=== PATIENT | male | born 1990 | race Caucasian/White ===

== ENCOUNTER 2018-05-03 05:34 | Outpatient (CLI) | payer BC ==
[~2018-05-03] VITALS: Ht 175.3 cm; Wt 78.5 kg
== END 2018-05-03 13:22 | disposition home or self-care (01) ==
LOC: PREOP 05:34
PROVIDERS: ATTEND Surgery
DX: Z01.818 Encounter for other preprocedural examination (principal)

== ENCOUNTER 2018-05-06 07:01 | Day surgery (SDC) | payer BC ==
[~2018-05-06] VITALS: Ht 175.3 cm; Wt 78.5 kg
--- OUTSIDE RECORDS SUMMARY | 2018-05-06 07:04 | XMS REPORT | Continuity of Care Document ---
Author Author [facility] Address Unknown Phone Unavailable Allergies Active Description Code Type Severity Reaction Onset Reported/Identified Relationship to Patient Clinical Status Yes Penicillins Drug Allergy 05/24/2012 Yes Penicillins Drug Allergy N/A N/A 05/24/2012 Yes Penicillins [id number] Drug Allergy Unknown HIVES 05/03/2018 Medications There is no data. Problems Date Dx Coded Attending Type Code Diagnosis Diagnosed By 05/24/2012 682.9 CELLULITIS AND ABSCESS OF UNSPECIFIED SITES 05/24/2012 682.9 CELLULITIS AND ABSCESS OF UNSPECIFIED SITES 05/24/2012 682.9 CELLULITIS AND ABSCESS OF UNSPECIFIED SITES 05/24/2012 MISTY HA APRN N 682.9 CELLULITIS AND ABSCESS OF UNSPECIFIED SITES 05/24/2012 MISTY HA APRN N 682.9 CELLULITIS AND ABSCESS OF UNSPECIFIED SITES 05/24/2012 LUIS MIGUEL ZARAGOZA APRN R 682.9 CELLULITIS AND ABSCESS OF UNSPECIFIED SITES 08/26/2012 487.1 INFLUENZA WITH OTHER RESPIRATORY MANIFESTATIONS 08/26/2012 487.1 INFLUENZA WITH OTHER RESPIRATORY MANIFESTATIONS 08/26/2012 487.1 INFLUENZA WITH OTHER RESPIRATORY MANIFESTATIONS 08/26/2012 MISTY HA APRN N 487.1 INFLUENZA WITH OTHER RESPIRATORY MANIFESTATIONS 08/26/2012 MISTY HA APRN N 487.1 INFLUENZA WITH OTHER RESPIRATORY MANIFESTATIONS 08/26/2012 LUIS MIGUEL ZARAGOZA APRN R 487.1 INFLUENZA WITH OTHER RESPIRATORY MANIFESTATIONS 04/25/2013 346.90 HEADACHE, MIGRAINE 04/25/2013 346.90 HEADACHE, MIGRAINE 04/25/2013 MISTY HA APRN N 346.90 HEADACHE, MIGRAINE 04/25/2013 MISTY HA APRN N 346.90 HEADACHE, MIGRAINE 04/25/2013 LUIS MIGUEL ZARAGOZA APRN R 346.90 HEADACHE, MIGRAINE 05/04/2013 461.9 SINUSITIS ACUTE 05/04/2013 MISTY HA APRN N 461.9 SINUSITIS ACUTE 05/04/2013 LARUA HA APRNCY N 461.9 SINUSITIS ACUTE 05/04/2013 NIK JENSENDanielito LUIS MIGUEL R 461.9 SINUSITIS ACUTE 10/04/2013 LAURA HA APRNCY N 478.19 OTHER DISEASES OF NASAL CAVITY AND SINUSES 10/04/2013 LAURA HA APRNCY N 787.01 NAUSEA WITH VOMITING 10/04/2013 AL GUZMAN APRN MISTY N 787.91 DIARRHEA 10/04/2013 LAURA HA APRNCY N 478.19 OTHER DISEASES OF NASAL CAVITY AND SINUSES 10/04/2013 LAURA HA APRNCY N 787.01 NAUSEA WITH VOMITING 10/04/2013 LAURA HA APRNCY N 787.91 DIARRHEA 10/04/2013 LUIS MIGUEL ZARAGOZA APRN R 478.19 OTHER DISEASES OF NASAL CAVITY AND SINUSES 10/04/2013 CATHY ZARAGOZA APRNIA R 787.01 NAUSEA WITH VOMITING 10/04/2013 CATHY ZARAGOZA APRNIA R 787.91 DIARRHEA 07/04/2014 LAURA HA APRNCY N 461.8 OTHER ACUTE SINUSITIS 07/04/2014 AL GUZMAN APRN MISTY N 784.1 THROAT PAIN 07/04/2014 CATHY ZARAGOZA APRNIA R 461.8 OTHER ACUTE SINUSITIS 07/04/2014 LUIS MIGUEL ZARAGOZA APRN R 784.1 THROAT PAIN 11/29/2014 LUIS MIGUEL ZARAGOZA APRN R 692.6 CONTACT DERMATITIS AND OTHER ECZEMA DUE TO PLANTS (EXCEPT FOOD) 04/23/2018 NELSON CONDON SAW FEEDER Ot R10.11 RIGHT UPPER QUADRANT PAIN Procedures Code [place] [address] THERAPUTIC INJ SQ/IM 11/29/2014 J1040 DEPO MEDROL 80 MG INJ 11/29/2014 J1100 DEXAMETHASONE SODIUM PHOS, 1 MG 11/29/2014 Results There is no data. Encounters ACCT No. Visit Date/Time Discharge Status Pt. Type Provider Facility Loc./Unit Complaint [id number] 11/29/2014 13:12:00 11/29/2014 23:59:59 CLS Outpatient LUIS MIGUEL ZARAGOZA APRN [id number] 07/04/2014 08:43:00 07/04/2014 23:59:59 CLS Outpatient MISTY HA APRN Danielito [id number] 10/04/2013 09:50:00 10/04/2013 23:59:59 CLS Outpatient MISTY HA APRN N [id number] 08/26/2012 16:13:00 08/26/2012 23:59:59 CLS Outpatient [id number] 05/04/2013 09:24:00 Document Registration [id number] 04/25/2013 16:21:00 Document Registration [id number] 05/03/2018 05:34:00 05/03/2018 13:22:00 DIS Outpatient DAPHNIE VÁZQUEZ DO [facility] PREOP GALLBLADDER POLYP [id number] 04/06/2018 06:53:00 04/06/2018 23:59:59 CLS Outpatient CONDONNELSON SAW FEEDER [facility] RAD RUQ PAIN [id number] 05/06/2018 08:00:00 PEN Preadmit DAPHNIE VÁZQUEZ DO [facility] SDC GALLBLADDER POLYP
[2018-05-06] MEDS ORDERED: CLINDAMYCIN 600 MG/50 ML IVPB 50 ML IV ONE (07:45)
[2018-05-06] MEDS: LACTATED RINGERS 1,000 ML IV PRN ×2 (07:45→10:15)
[2018-05-06 07:55] LABS: BASOPHILS % (AUTO) 0 % (0-10); EOSINOPHILS # (AUTO) 0.4 10^3/uL (0.0-0.3); EOSINOPHILS % (AUTO) 5 % (0-10); HEMATOCRIT 41 % (40-54); HEMOGLOBIN 14.7 G/DL (13.3-17.7); LYMPHOCYTES % (AUTO) 28 % (12-44); MEAN CORPUSCULAR HEMOGLOBIN 32 PG (25-34); MEAN CORPUSCULAR HGB CONC 36 G/DL (32-36); MEAN CORPUSCULAR VOLUME 90 FL (80-99); MEAN PLATELET VOLUME 9.7 FL (7.4-10.4); MONOCYTES # (AUTO) 0.9 X 10^3 (0.0-1.0); MONOCYTES % (AUTO) 12 % (0-12); NEUTROPHILS # (AUTO) 3.8 X 10^3 (1.8-7.8); NEUTROPHILS % (AUTO) 54 % (42-75); PLATELET COUNT 257 10^3/uL (130-400); RED BLOOD COUNT 4.57 10^6/uL (4.35-5.85); RED CELL DISTRIBUTION WIDTH 13.1 % (10.0-14.5)
--- NOTE | 2018-05-06 08:11 | Progress Note-Pre Operative ---
Pre-Operative Progress Note H&P Reviewed The H&P was reviewed, patient examined and no changes noted. Date Seen by Provider: May 06, 2018 Time Seen by Provider: 08:10 Date H&P Reviewed: May 06, 2018 Time H&P Reviewed: 08:10 Pre-Operative Diagnosis: ruq abdominal pain, gallbladder polyp DAPHNIE VÁZQUEZ DO May 06, 2018 08:11
[2018-05-06] MEDS ORDERED: DEXAMETHASONE 10 MG/ML (DECADRON) 1 ML VIAL ONE (08:55)
[2018-05-06] MEDS ORDERED: MIDAZOLAM 2 MG/2 ML (VERSED) VIAL ONE (08:55)
[2018-05-06] MEDS ORDERED: LIDOCAINE PF 2% 2 ML (XYLOCAINE) VIAL ONE (08:55)
[2018-05-06] MEDS ORDERED: ROCURONIUM 10 MG/ML 5 ML SYRINGE IV ONE (08:55)
[2018-05-06] MEDS ORDERED: SEVOFLURANE (ULTANE) 15 ML INHAL SOLN ONE (08:55)
[2018-05-06] MEDS ORDERED: ONDANSETRON 4 MG/2 ML (SDV) Z0FRAN ONE (08:55)
[2018-05-06] MEDS ORDERED: proPOfol 200 MG/20 ML (DIPRIVAN) VIAL IV ONE (08:55)
[2018-05-06] MEDS ORDERED: fentaNYL INJECTION 100 MCG/2 ML AMP ONE ×2 (08:55→09:31)
[2018-05-06] MEDS ORDERED: NEOSTIGMINE 1 MG/ML 5 ML SYRINGE ONE (09:03)
[2018-05-06] MEDS ORDERED: GLYCOPYRROLATE 0.2 MG/ML (ROBINUL) 2 ML VIAL ONE (09:03)
[2018-05-06] MEDS ORDERED: BUPIVACAINE 0.25% 30 ML (SENSORCAINE) VIAL ONE (09:20)
[2018-05-06] MEDS ORDERED: LIDOCAINE 1% INJ 20 ML 20 ML VIAL ONE (09:20)
[2018-05-06] MEDS ORDERED: BUPIVACAINE 0.5% 30 ML (SENSORCAINE) VIAL ONE (09:21)
[2018-05-06] MEDS ORDERED: KETOROLAC 30 MG/ML VIAL ONE (10:00)
[2018-05-06] MEDS ORDERED: DOCU-143 PO (10:07)
[2018-05-06] MEDS ORDERED: ACHD5005 PO (10:07)
--- NOTE | 2018-05-06 10:10 | Discharge Inst-Simple/Standard ---
Discharge Inst-Standard Discharge Medications New, Converted or Re-Newed RX: RX on Chart Patient Instructions/Follow Up Plan of Care/Instructions/FU: 2 weeks Tomás Activity as Tolerated: No Discharge Diet: Regular Diet Other Inst to Patient Follow up Appt: Make appointment for 2 weeks. Instructions: No lifting greater than 10 pounds. No strenuous activity. May shower in 24 hours, no tub bath or soaking. Use incentive spirometer at home as directed. No Smoking Skin/Wound Care: You have special glue over incisions it will fall off on its own. Symptoms to Report: Appetite Changes, Extremity Discoloration, Numbness/Tingling, Swelling Increased , Bleeding Excessive, Eyesight Changes, Pain Increased, Urine Color Change, Constipation(Persistent), Fever over 101 degree F, Pain/Pressure in chest, Urinating Difficulty, Cough Up/Vomit Blood, Heart Beat Irreg/Pounding, Pain/ Pressure in jaw, Vaginal Bleeding Increase, Cramps in feet or legs, Lightheadedness, Pain/Pressure in shoulder, Diarrhea(Persistent), Memory Changes Suddenly, Questions/Concerns, Weight gain consecutive days, Dizziness/ Fainting, Nausea/Vomiting, Shortness of Breath, Weight gain over 2 pounds. If eyes or skin turn yellow notify physician. If questions or concerns contact your physician Or seek help at emergency department. DAPHNIE VÁZQUEZ DO May 06, 2018 10:10
--- NOTE | 2018-05-06 10:13 | Progress Note-Post Operative ---
Post-Operative Progess Note Surgeon (s)/Neurological Surgeon (s) Surgeon DAPHNIE VÁZQUEZ DO Neurological Surgeon: Dr. Leal Pre-Operative Diagnosis ruq abdominal pain, gallbladder polyp Post-Operative Diagnosis same Procedure & Operative Findings Date of Procedure 05/06/18 Procedure Performed/Findings lap rima c attempted ioc Anesthesia Type gen Estimated Blood Loss Estimated blood loss (mL): min Specimens/Packing Specimens Removed gallbladder DAPHNIE VÁZQUEZ DO May 06, 2018 10:13
[2018-05-06] MEDS ORDERED: HYDROcodone/APAP 5 MG/325 MG (LORTAB) TAB PO PRN (10:15)
[2018-05-06] MEDS ORDERED: HYDROmorphone 2 MG/ML VIAL (DILAUDID) ONE (10:24)
[2018-05-06] MEDS ORDERED: HYDROmorphone 2 MG/ML VIAL (DILAUDID) IV ONE (10:45)
[2018-05-06] MEDS ORDERED: ONDANSETRON 4 MG/2 ML (SDV) Z0FRAN IVP PRN (10:45)
[2018-05-06] MEDS ORDERED: MEPERIDINE (DEMEROL) INJ 50 MG/ML IVP ONE (10:45)
[2018-05-06] MEDS ORDERED: fentaNYL INJECTION 100 MCG/2 ML AMP IVP ONE (10:45)
[2018-05-06 11:20] VITALS: BP 143/92
[2018-05-06 11:25] VITALS: BP 143/92
--- NOTE | 2018-05-06 11:30 | OPERATIVE REPORT ---
DATE OF SERVICE: 05/06/2018 PREOPERATIVE DIAGNOSES: Right upper quadrant abdominal pain and gallbladder polyp. POSTOPERATIVE DIAGNOSES: Right upper quadrant abdominal pain and gallbladder polyp. DESCRIPTION OF PROCEDURE: Laparoscopic cholecystectomy, attempted intraoperative cholangiogram. SURGEON: Daphnie England DO. SENIOR PATIENT ACCOUNT REPRESENTATIVE: Dr. Leal, who assisted in retraction, dissection and closure. ANESTHESIA: General. ESTIMATED BLOOD LOSS: Minimal. COMPLICATIONS: None. INDICATIONS: The patient is a 27-year-old man right upper quadrant abdominal pain. Ultrasound revealed gallbladder polyp. He was discussed risks and benefits of procedure and wished to proceed with procedure. Consent was signed on the chart. DESCRIPTION OF PROCEDURE: The patient was taken to the operating suite, was prepped and draped in sterile fashion. A surgical pause was performed. A Meseret technique was used to enter the abdomen just above the umbilicus. Once the abdomen was entered, 0 Vicryl was placed in a figure-of-8 fashion on the fascia for closure at the end of the case. A balloon trocar was inserted in the abdomen and pneumoperitoneum was achieved. Under direct visualization of the laparoscope, a 5 mm trocar was then placed in the subxiphoid region and two 5 mm trocars were placed in the right upper quadrant. Gallbladder was grasped and elevated. There were some adhesions with pulling the duodenum up to the gallbladder. These were taken down with [place] and cautery dissection. The cystic duct and the cystic artery were then dissected out. Clips were placed on the proximal and distal portion of the cystic artery and it was transected. A clip was placed on the distal portion of the cystic duct. It was partially transected. I attempted to put an arrow catheter down into the duct, but it was a very tiny small duct. This was attempted to be dilated and multiple attempts to put the arrow catheter down were unsuccessful. Therefore, it was decided not to proceed with a cholangiogram. Clips were placed on the proximal portion of the cystic duct and it was completely transected. Hook cautery was used to dissect the gallbladder from the gallbladder fossa achieving hemostasis. A small hole did enter into the gallbladder, which caused a little bit of bile spillage, but this was then irrigated and suctioned. Once the gallbladder was removed, it was placed in an Endobag and removed through the 12 mm trocar site. The abdomen was then irrigated and suctioned with copious amounts of irrigation. Hemostasis had been achieved. The abdomen was then desufflated and the trocars were removed. The 12 mm trocar site was closed with 0 Vicryl that was placed previously. The skin was then closed using 4-0 Monocryl in a subcuticular fashion. The abdomen was then washed and dried and Skin Affix was placed over the incisions. The patient tolerated the procedure well without any complications and sent to the recovery in stable condition. Job ID: [id number] DocumentID: [id number] Dictated Date: 05/06/2018 10:16:29 Authorization Specialist Date: 05/06/2018 11:30:01 Dictated By: DAPHNIE ENGLAND DO
[2018-05-06 11:50] VITALS: BP 136/78
[2018-05-06 12:20] VITALS: BP 125/65
--- NOTE | 2018-05-06 14:24 | Anesthesia-General Post-Op ---
General Patient Condition Mental Status/LOC: Same as Preop Cardiovascular: Satisfactory Nausea/Vomiting: Absent Respiratory: Satisfactory Pain: Controlled Complications: Absent Post Op Complications Complications None Follow Up Care/Instructions Patient Instructions None needed. Anesthesia/Patient Condition Patient Condition Patient is doing well, no complaints, stable vital signs, no apparent adverse anesthesia problems. No complications reported per nursing. NEVILLE DOYLE CRNA May 06, 2018 14:24
== END 2018-05-06 12:40 | disposition home or self-care (01) ==
LOC: SDC 07:01
PROVIDERS: ATTEND Surgery
DX: K81.1 Chronic cholecystitis (principal); R56.9 Unspecified convulsions; Z79.899 Other long term (current) drug therapy
CPT/HCPCS: 36415; 85025; 87081; 88304

== ENCOUNTER 2019-03-01 16:59 | Emergency (ER) | payer BC ==
[~2019-03-01] VITALS: Ht 172.7 cm; Wt 73.5 kg
[~2019-03-01 16:59] MED LIST: ACHD5005 PO; DOCU-143 PO
--- NOTE | 2019-03-01 17:11 | ED Lower Extremity ---
General Chief Complaint: Lower Extremity Stated Complaint: R FOOT PAIN Nursing Triage Note: pt c/o right foot pain after dropping a 25 lb weight on the top of his foot approx 30 min ago. Nursing Sepsis Screen: No Definite Risk Source: patient Exam Limitations: no limitations History of Present Illness Date Seen by Provider: Mar 01, 2019 Time Seen by Provider: 17:10 Initial Comments To ER per private vehicle with reports of right foot pain after dropping a 25 pound weight on the dorsum of the right mid foot just prior to arrival. Onset: just prior to arrival Severity: moderate Pain/Injury Location: right foot Method of Injury: direct blow Modifying Factors: Worse With Movement Allergies and Home Medications Allergies Coded Allergies: Penicillins (Verified Allergy, Unknown, HIVES, 05/03/18) Home Medications Docusate Sodium 100 Mg Capsule, 100 MG PO DAILY Prescribed by: DAPHNIE VÁZQUEZ on 05/06/18 1007 Hydrocodone Bit/Acetaminophen 1 Tab Tab, 1-2 TAB PO Q6H PRN for PAIN-MODERATE Prescribed by: DAPHNIE VÁZQUEZ on 05/06/18 1007 Patient Home Medication List Home Medication List Reviewed: Yes Review of Systems Constitutional: see HPI EENTM: see HPI Respiratory: no symptoms reported Cardiovascular: no symptoms reported Genitourinary: no symptoms reported Musculoskeletal: see HPI Skin: no symptoms reported Psychiatric/Neurological: No Symptoms Reported Past Apbgrpw-Vlgjln-Aisaiw Hx Patient Social History Alcohol Use: Occasionally Uses Recreational Drug Use: No Smoking Status: Never a Smoker Recent Foreign Travel: No Contact w/Someone Who Travel: No Recent Infectious Disease Expo: No Recent Hopitalizations: No Immunizations Up To Date Tetanus Booster (TDap): Unknown PED Vaccines UTD: No Seasonal Allergies Seasonal Allergies: No Past Medical History Gall Bladder Disease Physical Exam Vital Signs Vital Signs - First Documented 03/01/19 17:03 Temp 98.1 Pulse 77 Resp 18 B/P (MAP) 130/67 (88) O2 Delivery Room Air Capillary Refill : Less Than 3 Seconds Height, Weight, BMI Height: 5'8.00" Weight: 162lbs. 0.0oz. 73.706594au; 25.6 BMI Method:Stated General Appearance: WD/WN, no apparent distress Respiratory: no respiratory distress, no accessory muscle use Hips: bilateral hip non-tender, bilateral hip normal inspection, bilateral hip normal range of motion Legs: bilateral leg non-tender, bilateral leg normal inspection, bilateral leg normal range of motion Knees: bilateral knee non-tender, bilateral knee normal inspection, bilateral knee normal range of motion Ankles: bilateral ankle non-tender, bilateral ankle normal inspection, bilateral ankle normal range of motion Feet: right foot pain, right foot soft tissue tenderness, right foot other (abrasion to the dorsum of the right foot but no obvious swelling or deformity) Neurologic/Psychiatric: alert, normal mood/affect, oriented x 3 Skin: normal color, warm/dry Progress/Results/Core Measures Results/Orders My Orders Orders - KATHY GUERRERO APRN Foot, Right, 3 View (03/01/19 17:08) Vital Signs/I&O 03/01/19 17:03 Temp 98.1 Pulse 77 Resp 18 B/P (MAP) 130/67 (88) O2 Delivery Room Air Blood Pressure Mean: 88 Departure Impression Primary Impression: Contusion of foot Qualified Codes: S90.31XA - Contusion of right foot, initial encounter Disposition: 01 HOME, SELF-CARE Condition: Stable Departure-Patient Inst. Decision time for Depature: 17:32 Referrals: NO,LOCAL PHYSICIAN (PCP/Family) Primary Care Physician Patient Instructions: Contusion (DC) Add. Discharge Instructions: 1. Elevate the foot 2. Tylenol and ibuprofen for pain control 3. Ice pack to the area 30 minutes every 1-2 hours for the first day or 2 All discharge instructions reviewed with patient and/or family. Voiced understanding. KATHY GUERRERO APRN Mar 01, 2019 17:11
--- NOTE | 2019-03-01 17:39 | Diagnostic Imaging Report ---
INDICATION: Dropped 25 pounds on foot. Foot pain. EXAMINATION: Right foot from 03/01/2019. FINDINGS: Three views of the foot. There is no evidence for an acute fracture or dislocation. The joint spaces are well maintained. There is no significant soft tissue swelling. IMPRESSION: No acute process. Dictated by: Dictated on workstation # [id number]
[2019-03-01 17:45] VITALS: BP 124/76
--- OUTSIDE RECORDS SUMMARY | 2019-03-01 19:02 | XMS REPORT ---
Author Author Migration, Doctor Organization [facility] Address Unknown Phone Unavailable Care Team Providers Care Public Health Policy Analyst Name Role Phone Migration, Doctor Unavailable Unavailable PROBLEMS Type Condition ICD9-CM Code [id number] Code Onset Dates Condition Status SNOMED Code Problem Throat pain 784.1 Active 961740514 Problem Cellulitis and abscess of unspecified site 682.9 Active 064464085 Problem Influenza with other respiratory manifestations 487.1 Active 7961608 Problem Viral gastritis K29.70 Active 251165469 Problem Nausea with vomiting 787.01 Active 88343730 Problem Gastroesophageal reflux disease without esophagitis K21.9 Active 677473874 Problem Diarrhea 787.91 Active 94747503 Problem Acute sinusitis, unspecified 461.9 Active 14357457 Problem Other acute sinusitis 461.8 Active 07437071 Problem Other diseases of nasal cavity and sinuses 478.19 Active 346342840 Problem Migraine, unspecified without mention of intractable migraine without mention of status migrainosus 346.90 Active 20429268 ALLERGIES No Information ENCOUNTERS Encounter Location Date Diagnosis [facility] [address] [address] 08 Jan, 2017 Epigastric pain R10.13 and Gastroesophageal reflux disease without esophagitis K21.9 [facility] [address] [address] Jun, Viral gastritis K29.70 [facility] [address] [address] December, Gastroenteritis K52.9 [facility] [address] [address] 14 Nov, 2014 [facility] [address] [address] Nov, [facility] [address] [address] Jun, [facility] [id number] [address] Jun, [facility] [address] [address] Sep, [facility] [address] [address] Sep, [facility] [address] [place] [address] Apr, [facility] [address] [address] Apr, [facility] [address] [place] [address] Aug, [facility] [address] [address] May, [facility] [address] [address] May, [facility] [address] [address] May, IMMUNIZATIONS No Known Immunizations SOCIAL HISTORY Never Assessed REASON FOR VISIT [facility] [place] PLAN OF CARE VITAL SIGNS MEDICATIONS No Known Medications RESULTS No Results PROCEDURES No Known procedures INSTRUCTIONS MEDICATIONS ADMINISTERED No Known Medications
--- OUTSIDE RECORDS SUMMARY | 2019-03-01 19:02 | XMS REPORT ---
Author Author Migration, Doctor Organization [facility] Address Unknown Phone Unavailable Care Team Providers Care Piping Supervisor Name Role Phone Migration, Doctor Unavailable Unavailable PROBLEMS Type Condition ICD9-CM Code [id number] Code Onset Dates Condition Status SNOMED Code Problem Throat pain 784.1 Active 556563094 Problem Cellulitis and abscess of unspecified site 682.9 Active 145682805 Problem Influenza with other respiratory manifestations 487.1 Active 7257977 Problem Viral gastritis K29.70 Active 328722355 Problem Nausea with vomiting 787.01 Active 73005578 Problem Gastroesophageal reflux disease without esophagitis K21.9 Active 223259025 Problem Diarrhea 787.91 Active 74865479 Problem Acute sinusitis, unspecified 461.9 Active 87047538 Problem Other acute sinusitis 461.8 Active 60784422 Problem Other diseases of nasal cavity and sinuses 478.19 Active 419422367 Problem Migraine, unspecified without mention of intractable migraine without mention of status migrainosus 346.90 Active 74391909 ALLERGIES Substance Reaction Event Type Date Status Penicillins Unknown Non Drug Allergy Nov, Active ENCOUNTERS Encounter Location Date Diagnosis [facility] [id number] [place] [address] 08 Jan, 2017 Epigastric pain R10.13 and Gastroesophageal reflux disease without esophagitis K21.9 [facility] [id number] [place] [address] Jun, Viral gastritis K29.70 [facility] [id number] [place] [address] December, Gastroenteritis K52.9 [facility] [address] [address] Nov, [facility] [address] [address] Nov, [facility] [id number] [address] Jun, [facility] [address] [place] [address] Jun, [facility] [address] [address] Sep, [facility] [address] [place] [address] Sep, [facility] [address], [place] [address] Apr, [facility] [address] [place] [address] Apr, [facility] [address] [address] Aug, [facility] [address], [place] [address] May, [facility] [address] [address] May, [facility] [address], [place] [address] May, IMMUNIZATIONS No Known Immunizations SOCIAL HISTORY Never Assessed REASON [place]IT [facility] [place] VITAL SIGNS MEDICATIONS Medication Instructions Dosage Frequency Start Date End Date Duration Status MethylPREDNISolone 4 mg by Oral route every day for 6 days TAKE EACH DAYS DOSE AT ONE TIME DAILY Jun, Active Zithromax Z-Freedom 250 mg 2 tablet by Oral route 1 time per day for 5 days on day 1 then take 1 tab daily on days 2-5 Apr, Active Imitrex 100 mg 1 tablet by Oral route 1 time per day and repeat once more after 2 hours if headache recurs PRN Apr, Active Zofran ODT 8 mg 1 tablet by Oral route every 8 hours PRN nausea or vomiting Sep, Active Doxycycline Hyclate 100 mg take 1 tablet (100 mg) by oral route 2 times per day for 10 days May, Active RESULTS No Results PROCEDURES No Known procedures INSTRUCTIONS MEDICATIONS ADMINISTERED No Known Medications
--- OUTSIDE RECORDS SUMMARY | 2019-03-01 19:03 | XMS REPORT | Continuity of Care Document ---
Author Organization Unknown Address Unknown Allergies Active Description Code Type Severity Reaction Onset Reported/Identified Relationship to Patient Clinical Status Yes Penicillins Drug Allergy 05/24/2012 Yes Penicillins Drug Allergy N/A N/A 05/24/2012 Yes Penicillins [id number] Drug Allergy Unknown HIVES 05/03/2018 Medications There [...] HEADACHE, MIGRAINE 05/04/2013 461.9 SINUSITIS ACUTE 05/04/2013 LAURA HA APRNCY N 461.9 SINUSITIS ACUTE 05/04/2013 AL GUZMAN APRN, MISTY N 461.9 SINUSITIS ACUTE 05/04/2013 CATHY ZARAGOZA APRNIA R 461.9 SINUSITIS ACUTE 10/04/2013 AL GUZMAN APRN, MISTY N 478.19 OTHER DISEASES OF NASAL CAVITY AND SINUSES 10/04/2013 LAURA HA APRNCY N 787.01 NAUSEA WITH VOMITING 10/04/2013 AL GUZMAN APRN, MISTY N 787.91 DIARRHEA 10/04/2013 AL GUZMAN APRN, MISTY N 478.19 OTHER DISEASES OF NASAL CAVITY AND SINUSES 10/04/2013 AL GUZMAN APRN, MISTY N 787.01 NAUSEA WITH VOMITING 10/04/2013 AL GUZMAN APRN, MISTY N 787.91 DIARRHEA 10/04/2013 NIK JENSENDanielito LUIS MIGUEL R 478.19 OTHER DISEASES OF NASAL CAVITY AND SINUSES 10/04/2013 NIK JENSENLICO EstevesLUIS MIGUEL R 787.01 NAUSEA WITH VOMITING 10/04/2013 NIK JENSENLICO EstevesLUIS MIGUEL R 787.91 DIARRHEA 07/04/2014 AL GUZMAN APRN, MISTY N 461.8 OTHER ACUTE SINUSITIS 07/04/2014 LAURA HA APRNCY N 784.1 THROAT PAIN 07/04/2014 NIK JENSENLICO EstevesLUIS MIGUEL R 461.8 OTHER ACUTE SINUSITIS 07/04/2014 ZARAGOZA MENAGERIE SUPERINTENDENTCATHY EstevesIA R 784.1 THROAT PAIN 11/29/2014 LICO ZARAGOZA APRNRICIA R 692.6 CONTACT DERMATITIS AND OTHER ECZEMA DUE TO PLANTS (EXCEPT FOOD) 04/23/2018 NELSON CONDON Ot R10.11 RIGHT UPPER QUADRANT PAIN 05/03/2018 DAPHNIE VÁZQUEZ DO Ot Z01.818 ENCOUNTER FOR OTHER PREPROCEDURAL EXAMIN 05/04/2018 NELSON CONDON Ot R10.11 RIGHT UPPER QUADRANT PAIN 05/06/2018 DAPHNIE VÁZQUEZ DO Ot K81.1 CHRONIC CHOLECYSTITIS 05/06/2018 DAPHNIE VÁZQUEZ DO Ot R56.9 UNSPECIFIED CONVULSIONS 05/06/2018 DAPHNIE VÁZQUEZ DO Ot 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 05/09/2018 DAPHNIE VÁZQUEZ DO Ot Z01.818 ENCOUNTER FOR OTHER PREPROCEDURAL EXAMIN 05/10/2018 DAPHNIE VÁZQUEZ DO Ot K81.1 CHRONIC CHOLECYSTITIS 05/10/2018 DAPHNIE VÁZQUEZ DO Ot R56.9 UNSPECIFIED CONVULSIONS 05/10/2018 DAPHNIE VÁZQUEZ DO Ot Z79.899 OTHER ALF (CURRENT) DRUG THERAPY 05/11/2018 DAPHNIE VÁZQUEZ DO Ot K81.1 CHRONIC CHOLECYSTITIS 05/11/2018 DAPHNIE VÁZQUEZ DO Ot R56.9 UNSPECIFIED CONVULSIONS 05/11/2018 DAPHNIE VÁZQUEZ DO Ot 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 01/05/2019 TAURUS NELSONKEVIN LENTZ Ot R10.11 RIGHT UPPER QUADRANT PAIN Procedures Code [place] [address] THERAPUTIC INJ SQ/IM 11/29/2014 J1040 DEPO MEDROL 80 MG INJ 11/29/2014 J1100 DEXAMETHASONE SODIUM PHOS, 1 MG 11/29/2014 Results Test Result Range Methicillin resistant Staphylococcus aureus (MRSA) screening culture - 05/06/18 07:24 Methicillin resistant Staphylococcus aureus (MRSA) screening culture NEG NRG Complete blood count (CBC) with automated white blood cell (WBC) differential - 05/06/18 07:48 Blood leukocytes automated count (number/volume) 7.0 10*3/uL 4.3-11.0 Blood erythrocytes automated count (number/volume) 4.57 10*6/uL 4.35-5.85 Venous blood hemoglobin measurement (mass/volume) 14.7 g/dL 13.3-17.7 Blood hematocrit (volume fraction) 41 % 40-54 Automated erythrocyte mean corpuscular volume 90 [foz_us] 80-99 Automated erythrocyte mean corpuscular hemoglobin (mass per erythrocyte) 32 pg 25-34 Automated erythrocyte mean corpuscular hemoglobin concentration measurement (mass/volume) 36 g/dL 32-36 Automated erythrocyte distribution width ratio 13.1 % 10.0- 14.5 Automated blood platelet count (count/volume) 257 10*3/uL 130-400 Automated blood platelet mean volume measurement 9.7 [foz_us] 7.4-10.4 Automated blood neutrophils/100 leukocytes 54 % 42-75 Automated blood lymphocytes/100 leukocytes 28 % 12-44 Blood monocytes/100 leukocytes 12 % 0-12 Automated blood eosinophils/100 leukocytes 5 % 0-10 Automated blood basophils/100 leukocytes 0 % 0-10 Blood neutrophils automated count (number/volume) 3.8 10*3 1.8-7.8 Blood lymphocytes automated count (number/volume) 2.0 10*3 1.0-4.0 Blood monocytes automated count (number/volume) 0.9 10*3 0.0- 1.0 Automated eosinophil count 0.4 10*3/uL 0.0-0.3 Automated blood basophil count (count/volume) 0.0 10*3/uL 0.0-0.1 Encounters ACCT No. Visit Date/Time Discharge Status Pt. Type Provider Facility Loc./Unit Complaint [id number] 11/29/2014 13:12:00 11/29/2014 23:59:59 CLS Outpatient LUIS MIGUEL ZARAGOZA APRN [id number] 07/04/2014 08:43:00 07/04/2014 23:59:59 CLS Outpatient MISTY HA APRN [id number] 10/04/2013 09:50:00 10/04/2013 23:59:59 CLS Outpatient MISTY HA APRN [id number] 08/26/2012 16:13:00 08/26/2012 23:59:59 CLS Outpatient [id number] 05/04/2013 09:24:00 Document Registration [id number] 04/25/2013 16:21:00 Document Registration [id number] 05/06/2018 07:01:00 05/06/2018 12:40:00 DIS Outpatient DAPHNIE VÁZQUEZ DO [facility] SDC GALLBLADDER POLYP [id number] 05/03/2018 05:34:00 05/03/2018 13:22:00 DIS Outpatient DAPHNIE VÁZQUEZ DO [facility] PREOP GALLBLADDER POLYP [id number] 04/06/2018 06:53:00 04/06/2018 23:59:59 CLS Outpatient NELSON CONDON CABINETMAKER APPRENTICE [facility] RAD RUQ PAIN
== END 2019-03-01 17:45 | disposition home or self-care (01) ==
LOC: EDUNIT# 16:59 → ER 17:00
DX: S90.31XA Contusion of right foot, initial encounter (principal); Z88.0 Allergy status to penicillin; W20.8XXA Other cause of strike by thrown, projected or falling object, initial encounter
CPT/HCPCS: 73630